=== PATIENT | male | born 1960 | race American Indian/Alaskan Native ===

== ENCOUNTER 2021-12-16 11:30 | Outpatient (CLI) | payer OTHER ==
[2021-12-16 12:14] LABS: INR 0.93 (0.87-1.13)
== END 2021-12-16 11:31 | disposition home or self-care (01) ==
LOC: LAB 11:30
DX: I48.0 Paroxysmal atrial fibrillation (principal); Z79.01 Long term (current) use of anticoagulants
CPT/HCPCS: 36415; 85610

== ENCOUNTER 2021-12-23 10:07 | Outpatient (CLI) | payer OTHER ==
[2021-12-23 11:07] LABS: INR 1.16 (0.87-1.13)
== END 2021-12-23 10:08 | disposition home or self-care (01) ==
LOC: LAB 10:07
DX: I48.0 Paroxysmal atrial fibrillation (principal); Z79.01 Long term (current) use of anticoagulants
CPT/HCPCS: 36415; 85610

== ENCOUNTER 2021-12-30 09:22 | Outpatient (CLI) | payer OTHER ==
[2021-12-30 10:34] LABS: INR 1.76 (0.87-1.13)
== END 2021-12-30 09:23 | disposition home or self-care (01) ==
LOC: LAB 09:22
DX: I48.0 Paroxysmal atrial fibrillation (principal); Z79.01 Long term (current) use of anticoagulants
CPT/HCPCS: 36415; 85610